=== PATIENT | male | born 1980 | race Caucasian/White ===

== ENCOUNTER 2020-04-02 10:52 | Emergency (ER) | payer OTHER, SELFPAY ==
[2020-04-02 11:08] VITALS: BP 145/62; PULSE 70; RESP 14; TEMP 36.8; O2SAT 98; BMI 24.4
[2020-04-02 11:32] VITALS: BP 113/59; PULSE 65; O2SAT 98
--- NOTE | 2020-04-02 11:50 | PC.NURSE ---
Patient's spouse noticed a difference in pupil size this morning. Upon examination by RN, a very slight difference was noticed in rate of constriction on the Right pupil. However, pupils were equal, round and reactive to light. Pt denies any visual changes, use of medications that might affect pupillary size, or any other symptoms.
--- NOTE | 2020-04-02 12:27 | DI.CT.S_ITS ---
PROCEDURE: CT HEAD/BRAIN WO CON INDICATIONS: headache, unequal pupils TECHNIQUE: Noncontrast 4.5 mm thick angled axial sections acquired from the foramen magnum to the vertex, with coronal and sagittal reformats. For radiation dose reduction, the following was used: automated exposure control, adjustment of mA and/or kV according to patient size. COMPARISON: None. FINDINGS: Image quality: Excellent. CSF spaces: Basal cisterns are patent. No extra-axial fluid collections. Ventricles are normal in size and shape. Brain: No midline shift. No intracranial masses or hemorrhage. Lopez-white matter interface is normal. Skull and face: Calvarium and visualized facial bones are intact, without suspicious lesions. Sinuses: Visualized sinuses and mastoids are clear. IMPRESSION: No acute intracranial hemorrhage is seen. No acute intracranial process is seen. No masses or mass effect can be seen to the limits of this noncontrast head CT. Dictated by: Bernard Kessler M.D. on 04/02/2020 at 11:48 Approved by: Bernard Kessler M.D. on 04/02/2020 at 11:48
--- NOTE | 2020-04-02 12:45 | ED_ITS ---
HPI - Eye Problem <GRAYSON Carson - Last Filed: 04/02/20 15:07> General Chief complaint: Eye Problems Stated complaint: pupils diff sizes, sent by nurse hotline Time Seen by Provider: 04/02/20 11:30 Source: patient Mode of arrival: Ambulatory Limitations: no limitations History of Present Illness HPI Narrative: The patient is a 39-year-old male who presents with a chief complaint of a headache yesterday followed by different sized pupils today. He states that yesterday as headache was a 5/10, he took 2 ibuprofen and felt relief. He denies any vomiting or other concurrent symptoms. He did not think much of it until his noted on equal pupils this morning. 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 He denies any falls or trauma, denies hitting his head or getting into any recent accidents. He has not taken any blood thinners. He states overall he feels well. Related Data Allergies Allergy/AdvReac Type Severity Reaction Status Date / Time No Known Drug Allergies Allergy Verified 04/02/20 11:10 Review of Systems <GRAYSON Carson - Last Filed: 04/02/20 15:07> Review of Systems Narrative: GENERAL: Denies chills, fatigue, malaise, fever, sweats. HEENT: See HPI RESPIRATORY: Denies dyspnea, cough, wheezing, hemoptysis, sputum. CARDIOVASCULAR: Denies chest pain, palpitations, orthopnea, edema, GASTROINTESTINAL: Denies nausea, vomiting, abdominal pain, diarrhea, constipation, melena. : Denies dysuria, frequency, incontinence, hematuria, urinary retention. MUSCULOSKELETAL: denies weakness, joint pain, or bony pain SKIN: Denies rash, skin lesions, or other NEUROLOGIC: Denies weakness, headache, numbness, change in speech, confusion, seizures, incoordination. PSYCHIATRIC: No concerning psychosocial issues. 12 point review of systems is negative except for those stated above Patient History <GRAYSON Carson - Last Filed: 04/02/20 15:07> Social History Smoking Status: Unknown if ever smoked Smoking Status: Unknown if ever smoked alcohol intake frequency: holidays/special occasions only Substance Use Type: does not use Exam <GRAYSON Carson - Last Filed: 04/02/20 15:07> Narrative Exam Narrative: GENERAL: This is a well-nourished, well-developed patient, in no acute distress HEAD: Atraumatic. Normocephalic. No temporal or scalp tenderness. EYES: Pupils equal round and reactive. Extraocular motions intact. No scleral icterus. No injection or drainage. Pupils equal round reactive, right reacts slightly slow ENT: Nose without bleeding, purulent drainage or septal hematoma. Wearing a mask. Airway patent. NECK: Trachea midline. No JVD or lymphadenopathy. Supple, nontender, no meningeal signs. CARDIOVASCULAR: Regular rate and rhythm RESPIRATORY: Clear to auscultation. Breath sounds equal bilaterally. No wheezes, rales, or rhonchi. No cough. No increased respiratory effort. No accessory muscle use. EXTREMITIES: No clubbing, cyanosis, or edema. No joint tenderness, effusion, or edema noted. BACK: Nontender without deformity or crepitance. No flank tenderness. NEURO: AOx3. No gross cranial nerve deficit. Speaking clearly. SKIN: No rash or erythema. Initial Vital Signs Initial Vital Signs: Vital Signs Temperature 98.2 F 04/02/20 11:08 Pulse Rate 70 04/02/20 11:08 Respiratory Rate 14 04/02/20 11:08 Blood Pressure 145/62 H 04/02/20 11:08 Pulse Oximetry 98 04/02/20 11:08 <Kalli Leavitt DO - Last Filed: 04/05/20 07:23> Initial Vital Signs Initial Vital Signs: Vital Signs Temperature 98.2 F 04/02/20 11:08 Pulse Rate 70 04/02/20 11:08 Respiratory Rate 14 04/02/20 11:08 Blood Pressure 145/62 H 04/02/20 11:08 Pulse Oximetry 98 04/02/20 11:08 Scores <GRAYSON Carson - Last Filed: 04/02/20 15:07> GCS Paul coma scale eye opening: Spontaneous [place] coma scale verbal response: Orientated [place] coma scale motor response: Obey commands [place] coma scale total score: 15 Course <GRAYSON Carson - Last Filed: 04/02/20 15:07> Orders Ordered: ED Orders 04/02/20 12:27 CT head/brain wo con Stat Vital Signs Vital signs: Vital Signs - 8 hr 04/02/20 11:08 04/02/20 11:32 Temperature 98.2 F Pulse Rate 70 65 Respiratory Rate 14 Blood Pressure 145/62 H 113/59 L Pulse Oximetry 98 98 <Kalli Leavitt DO - Last Filed: 04/05/20 07:23> Orders Ordered: ED Orders 04/02/20 12:27 CT head/brain wo con Stat Vital Signs Vital signs: Vital Signs - 8 hr 04/02/20 11:08 04/02/20 11:32 Temperature 98.2 F Pulse Rate 70 65 Respiratory Rate 14 Blood Pressure 145/62 H 113/59 L Pulse Oximetry 98 98 MDM - Eye Problem <GRAYSON Carson - Last Filed: 04/02/20 15:07> Imaging Data CT scan - head: Radiologist's Impression: [facility] [address] [place] [id number] Scan ReportSigned Patient: Mert Jimenez TMR#: [id number]: 1980Acct:[id number]/Sex: 39 / MDate of Service: 04/02/20Loc: EDAccession Number: [id number] Procedure: CT head/brain wo con Ordering Provider: Bailey Livingston PROCEDURE: CT HEAD/BRAIN WO CON INDICATIONS: headache, unequal pupils TECHNIQUE: Noncontrast 4.5 mm thick angled axial sections acquired from the foramen magnum to the vertex, with coronal and sagittal reformats. For radiation dose reduction, the following was used: automated exposure control, adjustment of mA and/or kV according to patient size. COMPARISON: None. FINDINGS: Image quality: Excellent. CSF spaces: Basal cisterns are patent. No extra-axial fluid collections. Ventricles are normal in size and shape. Brain: No midline shift. No intracranial masses or hemorrhage. Lopez-white matter interface is normal. Skull and face: Calvarium and visualized facial bones are intact, without suspicious lesions. Sinuses: Visualized sinuses and mastoids are clear. IMPRESSION: No acute intracranial hemorrhage is seen. No acute intracranial process is seen. No masses or mass effect can be seen to the limits of this noncontrast head CT. Dictated by: Bernard Kessler M.D. on 04/02/2020 at 11:48 Approved by: Bernard Kessler M.D. on 04/02/2020 at 11:48 [facility] Narrative Medical decision making narrative: The patient is a 39-year-old male who pr esents with a chief complaint of unequal pupils per his after a headache yesterday. The patient appears neurologically intact throughout stay in the ER. He is noted to have right pupil reacts slightly slower than left. Given that combined with headache, I offered a head CT patient would like to have head CT done today. Results with no acute findings. Discussed the risk of radiation. Encouraged follow-up with primary care provider as well as coming back to the ER for acute concerns. Patient has no questions or concerns upon discharge states understanding return precautions as well as follow-up care. Discharge Plan Departure Patient Disposition: Home Clinical Impression: Concern about eye disease without diagnosis Instructions: DI for Headache Activity Restrictions/Additional Instructions: Thank you for trusting us with your care today As discussed, your head CT had no acute findings. Having different sized pupils can be very normal and can reflect a condition called anisocoria Please follow-up with primary care provider in the next few days. Please come back to the ER for acute concerns. Referrals: [facility] [Provider Group] <Kalli Leavitt, DO - Last Filed: 04/05/20 07:23> Cosign ED Attending Kyature Attestation: I was immediately available in the department for consultation. Documentation has been reviewed. I agree with asse ssment and plan.
== END 2020-04-02 13:38 | disposition home or self-care (01) ==
PROVIDERS: Emergency Provider Nurse Practitioner Family
DX: H57.09 Other anomalies of pupillary function (principal); R51.9 Headache, unspecified
CPT/HCPCS: 70450; 99283; 99284

== ENCOUNTER 2021-01-06 21:36 | Emergency (ER) | payer OTHER, SELFPAY ==
[2021-01-06 21:58] VITALS: BP 124/55; PULSE 61; RESP 17; TEMP 36.8; O2SAT 98; BMI 24.4
--- NOTE | 2021-01-06 22:49 | ED.RECABL ---
HPI - Recheck/Abnormal Lab/Rx General Chief Complaint: Recheck/Abnormal Lab/Rx Stated Complaint: covid test for travel Time Seen by Provider: 01/06/21 21:41 Source: patient Mode of arrival: Ambulatory Limitations: no limitations History of Present Illness HPI narrative: 40-year-old male nonsmoker with noncontributory medical history presents with request for a COVID test prior to international travel. 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 [place]. He is asymptomatic and denies any runny nose, sore throat or cough. He denies exposure to persons known to have or be suspected of having COVID. He is here purely for a test and, as stated, is completely asymptomatic Related Data Allergies Allergy/AdvReac Type Severity Reaction Status Date / Time No Known Drug Allergies Allergy Verified 04/02/20 11:10 Review of Systems Review of Systems Narrative: GENERAL: Denies chills, fatigue, malaise, fever, sweats. HEENT: Denies sinus pain, ear pain, sore throat, difficulty swallowing, dizziness. RESPIRATORY: Denies dyspnea, cough, wheezing, hemoptysis, sputum. CARDIOVASCULAR: Denies chest pain, palpitations, orthopnea, edema, GASTROINTESTINAL: Denies nausea, vomiting, abdominal pain, diarrhea, constipation, melena. : Denies dysuria, frequency, incontinence, hematuria, urinary retention. MUSCULOSKELETAL: denies weakness, joint pain, or bony pain SKIN: Denies rash, skin lesions, or other NEUROLOGIC: Denies weakness, headache, numbness, change in speech, confusion, seizures, incoordination. PSYCHIATRIC: No concerning psychosocial issues. 12 point review of systems is negative except for those stated above Patient History Social History Smoking Status: Never smoker Smoking Status: Never smoker alcohol intake frequency: a few times a week Substance Use Type: does not use Exam Narrative Exam Narrative: GEN: AOx3 and in mild distress EYES: Pupils are equal, round, and reactive to light and accommodation. Extraoccular muscles are intact bilaterally. There is no subconjunctival hemorrhage or exudate. CHEST: Lungs are clear to auscultation bilaterally and free of wheezes, rales, or rhonchi. Heart rate is regular rhythm, there are no murmurs, clicks, rubs, or gallops. There is no chest wall tenderness. ABD: Abdomen is soft and nontender. There is no guarding or rebound. Bowel sounds are normal in all 4 quadrants. There is no mass or organomegaly. EXT: Full painless ROM of all extremities with no loss of sensation or strength. SKIN: Warm, pink, and dry. No erythema or rash Initial Vital Signs Initial Vital Signs: Vital Signs Temperature 98.2 F 01/06/21 21:58 Pulse Rate 61 01/06/21 21:58 Respiratory Rate 17 01/06/21 21:58 Blood Pressure 124/55 L 01/06/21 21:58 Pulse Oximetry 98 01/06/21 21:58 Course Orders Ordered: ED Orders 01/06/21 22:05 COVID19 - ADMIT ([employer] swab/PCR) Stat Vital Signs Vital signs: Vital Signs - 8 hr 01/06/21 21:58 Temperature 98.2 F Pulse Rate 61 Respiratory Rate 17 Blood Pressure 124/55 L Pulse Oximetry 98 MDM - Recheck/Abnormal Lab/Rx Lab Data Labs: Lab Results 01/06/21 Range/Units 22:05 SARS-CoV-2 (PCR) Negative (Negative) Discharge Plan Departure Patient Disposition: Home Clinical Impression: Feared complaint without diagnosis Instructions: COVID-19 Viral Test Activity Restrictions/Additional Instructions: *You have been diagnosed with [screening exam for COVID. Your PCR test today is negative *What to do: *Please continue to take your regular medications as directed. [ ] New medication prescriptions sent to your pharmacy: [ ] [ ] New medication written as a paper prescription [x ] No new medications given *Safe travels Referrals: Leo Cruz DO [Primary Care Provider] -
[2021-01-06 23:16] LABS: COVID19 - ADMIT (NP swab/PCR) Negative (Negative)
== END 2021-01-06 23:22 | disposition home or self-care (01) ==
PROVIDERS: Emergency Provider Emergency Medicine; PCP Student in an Organized Health Care Education/Training Program
DX: Z20.822 Contact with and (suspected) exposure to COVID-19 (principal)
CPT/HCPCS: 87635; 99281; C9803

== ENCOUNTER → 2024-01-06 11:40 | Outpatient (CLI) | payer OTHER, SELFPAY ==
[2024-01-06 13:09] LABS: Adenovirus Not Detected (Not Detect); B. parapertussis Not Detected (Not Detecte); Bordetella pertussis Not Detected (Not Detect); Chlamydophila pneumoniae Not Detected (Not Detect); Coronavirus 229E Not Detected (Not Detect); Coronavirus HKU1 Not Detected (Not Detect); Coronavirus NL 63 Not Detected (Not Detect); Coronavirus OC43 Not Detected (Not Detect); Human Metapneumovirus Not Detected (Not Detect); Human Rhinovirus/Enterovirus Not Detected (Not Detect); Influenza A Not Detected (Not Detect); Influenza B Not Detected (Not Detect); Mycoplasma pneumoniae Not Detected (Not Detect); Parainfluenza Virus 1 Not Detected (Not Detect); Parainfluenza Virus 2 Not Detected (Not Detect); Parainfluenza Virus 3 Not Detected (Not Detect); Parainfluenza Virus 4 Not Detected (Not Detect); Respiratory Syncytial Virus Not Detected (Not Detect); SARS- CoV-2 Not Detected (Not Detecte)
== END ==
PROVIDERS: PCP Student in an Organized Health Care Education/Training Program; Visit Provider Nurse Practitioner Family
DX: R05.1 Acute cough
CPT/HCPCS: 87070; 87633

== ENCOUNTER → 2024-01-06 11:44 | Outpatient (CLI) | payer OTHER, SELFPAY ==
--- NOTE | 2024-01-06 11:45 | DI.RAD.S_ITS ---
PROCEDURE: XR CHEST 2V INDICATIONS: Cough TECHNIQUE: 2 views of the chest were acquired. COMPARISON: None. FINDINGS: Heart, mediastinum and pulmonary vascular: Heart is normal in size and configuration. Mediastinum is unremarkable. Pulmonary vascular is normal. Lungs: Small infiltrate seen in the lingular region Pleural spaces: Normal-no effusions or pneumothorax. Bones and soft tissues: Normal IMPRESSION: Small lingular infiltrate. Dictated by: Jett Liang M.D. on 01/07/2024 at 10:12 Approved by: Jett Liang M.D. on 01/07/2024 at 10:12
== END ==
LOC: RAD 11:45
PROVIDERS: PCP Student in an Organized Health Care Education/Training Program; Referring Provider Nurse Practitioner Family; Visit Provider Nurse Practitioner Family
DX: R05.1 Acute cough (principal); R91.8 Other nonspecific abnormal finding of lung field
CPT/HCPCS: 71046; 87070; 87633

== ENCOUNTER → 2024-02-24 17:09 | Outpatient (CLI) | payer OTHER, SELFPAY ==
--- NOTE | 2024-02-24 17:11 | DI.MRI.S_ITS ---
PROCEDURE: MR PELVIS WO CON INDICATIONS: OSTEOARTHRITIS RT HIP TECHNIQUE: Noncontrast coronal and axial T1 spin echo and STIR through the bony pelvis. COMPARISON: None. FINDINGS: Image quality: Excellent. Bones: Asymmetric [id number] right hip joint osteoarthritic changes are seen with superior joint space narrowing, subchondral sclerosis and small marginal osteophyte formation. No acute fracture or dislocation. No evidence of avascular necrosis of femoral head. Mild degenerative disc disease in visualized lower lumbar spine is seen. No suspicious bony lesions. Tendons: There is bilateral distal gluteus medius tendinosis and low-grade partial-thickness tear at their insertions on greater trochanters extending to musculotendinous junction. Distal bilateral gluteus minimus tendons are intact. The nearby proximal iliotibial band also appears intact. The iliopsoas tendon appears intact, without adjacent bursal fluid collections or evidence for impingement syndrome. The origin of the hamstring tendon is intact at the ischial tuberosity. Large knabm-yw-avgy shows signal abnormality and fraying involving superior anterior right acetabular labrum suggestive of extensive superior anterior right acetabular labral tear. No obvious left acetabular labral tear is seen. Soft tissues: Visualized muscles demonstrate normal bulk and internal signal. No joint effusions. No free pelvic fluid. Bladder wall thickness is normal. Genitourinary structures and bowel loops appear normal where visualized. IMPRESSION: 1. Asymmetric lide-qu-voirybuv right hip joint osteoarthritis. No acute fracture or dislocation. No evidence of avascular necrosis of femoral head. Mild degenerative disc lower lumbar spine. 2. Low-grade partial-thickness tear involving bilateral distal gluteus medius tendons extending to musculotendinous junction. No other muscle or tendon signal abnormalities. 3. Suggestion of superior anterior right acetabular labral tear. Dictated by: Joshua Rosa M.D. on 02/25/2024 at 8:38 Approved by: Joshua Rosa M.D. on 02/25/2024 at 8:54
== END ==
PROVIDERS: PCP Student in an Organized Health Care Education/Training Program; Referring Provider Family Medicine; Visit Provider Family Medicine
DX: M16.11 Unilateral primary osteoarthritis, right hip (principal); M51.369 Other intervertebral disc degeneration, lumbar region without mention of lumbar back pain or lower extremity pain; M76.01 Gluteal tendinitis, right hip; M76.02 Gluteal tendinitis, left hip
CPT/HCPCS: 72195